=== PATIENT | male | born 1995 | race Caucasian/White ===

== ENCOUNTER 2023-06-24 22:33 | Emergency (ER) | payer OTHER, SELFPAY ==
[2023-06-24 22:34] VITALS: BP 148/79; PULSE 89; RESP 16; TEMP 36.8; O2SAT 96
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
[2023-06-25] MEDS: Tetracaine HCl/PF 0.5% Oph Sol 4 ML DROPS 3 DROP EYE-RIGHT (00:14)
[2023-06-25] MEDS: Tobramycin Sulfate 0.3% Sol Op 5 ML BTL 2 DROP EYE-RIGHT (00:14)
[2023-06-25] MEDS: Fluorescein Sodium STRIP 1 STRIP EYE-RIGHT (00:14)
[2023-06-25 00:16] VITALS: BP 155/88; PULSE 71; RESP 16; O2SAT 97
== END 2023-06-25 00:19 | disposition home or self-care (01) ==
PROVIDERS: Emergency Provider Internal Medicine
DX: H10.211 Acute toxic conjunctivitis, right eye (principal)
CPT/HCPCS: 99283; 99284

== ENCOUNTER 2024-06-06 21:22 | Emergency (ER) | payer OTHER, SELFPAY ==
--- NOTE | ~2024-06-06 | CT_ITS ---
EXAMINATION: CT HEAD WITHOUT CONTRAST CLINICAL INFORMATION: Dizziness COMPARISON: None. TECHNIQUE: Multidetector volumetric imaging of the head was performed without intravenous contrast material. This CT examination was performed using dose optimization techniques as appropriate, variously including the following: *Automated exposure control *Adjustment of mA and/or kV according to patient size (this includes techniques or standardized protocols for targeted exams where dose is matched to indication/reason for exam; i.e. extremities or head) *Use of iterative reconstruction technique Dose: 739 mGy-cm FINDINGS: There is no evidence of acute intracranial hemorrhage or territorial infarction. No abnormal mass-effect or midline shift is seen. [place] to white matter differentiation is well preserved. No extra axial fluid collections. The ventricles are normal in size and configuration. There is no abnormal attenuation within the brain parenchyma. The soft tissues and osseous structures are normal. The sinuses and mastoid air cells are clear. CT/CT head/brain wo IV con IMPRESSION: No acute intracranial pathology.
[2024-06-06 21:45] VITALS: BP 142/73; PULSE 81; RESP 16; TEMP 36.4; O2SAT 97; BMI 32.1
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
[2024-06-06 23:35] VITALS: BP 137/66; PULSE 63
[2024-06-06 23:36] VITALS: BP 146/84; PULSE 69
[2024-06-06 23:37] VITALS: BP 133/85; PULSE 84
[2024-06-06 23:59] LABS: Appearance Urine Clear; Color Urine Yellow; Glucose Urine UA Negative (Negative); Leukocyte Esterase Urine Negative (Negative); Nitrite Urine Negative (Negative); Specific Gravity - Urine 1.025 (1.005-1.025); Urine Blood Negative (Negative); Urine Ketones Negative (Negative); Urine Protein Negative (Neg-Trace)
[2024-06-07 00:09] LABS: Amphetamine Screen Urine Not Detected (Not Detect); Barbiturates, Urine Not Detected (Not Detect); Benzodiazepines Screen Urine Not Detected (Not Detect); Buprenorphine Scr Not Detected (Not Detect); Cannabinoid Screen Urine POSITIVE (Not Detect); Cocaine Screen Urine Not Detected (Not Detect); Fentanyl, urine Not Detected (Not Detect); Methadone Screen, Urine Not Detected (Not Detect); Opiate Screen Urine Not Detected (Not Detect); Oxycodone Screen Urine Not Detected (Not Detect); Phencyclidine Screen Urine Not Detected (Not Detect)
[2024-06-07 00:28] VITALS: BP 134/72; PULSE 84; RESP 18; TEMP 36.6; O2SAT 99
== END 2024-06-07 00:31 | disposition home or self-care (01) ==
PROVIDERS: Physician Assistant; Emergency Provider Internal Medicine; PCP Nurse Practitioner Family
DX: R42 Dizziness and giddiness (principal); S06.0X0A Concussion without loss of consciousness, initial encounter; Y04.2XXA Assault by strike against or bumped into by another person, initial encounter; Y93.9 Activity, unspecified; Y92.9 Unspecified place or not applicable; Y99.9 Unspecified external cause status
CPT/HCPCS: 70450; 80307; 81003; 99284

== ENCOUNTER 2024-11-07 21:36 | Emergency (ER) | payer OTHER, SELFPAY ==
--- NOTE | ~2024-11-07 | CT_ITS ---
CLINICAL HISTORY: pain, compression fx? CT lumbar spine without contrast Comparison: None Findings: Minimal convex right mid lumbar curvature. Bony alignment is anatomic on the sagittal reconstructions. No acute fracture. No retroperitoneal mass lesions are seen within the field of view. Minimal posterior annular region seen at the L3-4 disc level. Broad-based disc bulge with superimposed right lateral disc protrusion at L4-5. Disc protrusion extends into the right neural foramen. Mild displacement of the exiting right L4 nerve rootlet. Posterior osteophytic ridging broad-based disc bulge of the L5-S1 disc level without central canal and neural foraminal narrowing. IMPRESSION: No acute fracture. Degenerative change from L3-4 through L5-S1. This includes a broad-based disc bulge and superimposed right lateral disc protrusion at L4-5 with mild displacement of the exiting right L4 nerve rootlets. Correlation with a right L4 radiculopathy suggested. This document has been electronically signed by: Severo Vaughan MD on 11/08/2024 03:18:36
[2024-11-07 21:53] VITALS: BP 135/71; PULSE 86; RESP 14; TEMP 36.9; O2SAT 99; BMI 35.5
--- NOTE | 2024-11-08 00:07 | ED.BACK ---
HPI - Back Pain/Injury General Chief Complaint: Back Pain/Injury Stated Complaint: back pain Time Seen by Provider: 11/07/24 23:39 Source: patient Limitations: no limitations History of Present Illness ED Provider: Nicky Wesley PA-C HPI Narrative: 29-year-old male presents with acute onset low back pain. Patient was at the gym he was lifting 400 lb when he developed acute onset low back pain. Denies fall. Denies radiation of pain down either extremity, paresthesia, weakness, urinary retention or bowel incontinence. Related Data Previous Rx's ?Medication ?Instructions ?Recorded meclizine 25 mg tablet 25 mg PO DAILY PRN dizziness #14 06/07/24 tabs meloxicam 15 mg tablet 15 mg PO DAILY #7 tabs 11/08/24 methocarbamol 750 mg tablet 1,500 mg (2 x 750 mg) PO TID PRN 11/08/24 pain, moderate #24 tabs Allergies Allergy/AdvReac Type Severity Reaction Status Date / Time bupropion [From Wellbutrin] Allergy Hives Verified 11/07/24 21:55 Review of Systems Review of Systems: Yes all other systems are reviewed and are negative Constitutional: Constitutional: Denies fatigue and Denies fever(s) Cardiovascular: Cardiovascular: Denies chest pain and Denies dyspnea Respiratory: Respiratory: Denies dyspnea Musculoskeletal: Musculoskeletal: Reports back pain, Denies muscle weakness, Denies numbness, Denies radiating pain into limb and Denies tingling Neurologic: Denies numbness and Denies tingling Endocrine: Endocrine: Denies fatigue PMFSH Past Medical History Attestation statement: The following information was validated with the patient. Social History Social History Alcohol intake: never Smoked in Last 30 Days: No Use of substances other than those prescribed or required for medical reasons: No Advance Directives: No Advance Directives Information Provided: Yes Do you have a plan to hurt others: No Plan Physical Exam Vital Signs: Vital Signs: Last Vital Signs Temp 98.5 F 11/08/24 00:25 Pulse 94 11/08/24 00:25 Resp 18 11/08/24 00:25 BP 146/89 H 11/08/24 00:25 Pulse Ox 97 11/08/24 00:25 O2 Del Method Room Air 11/08/24 00:25 BMI result Body Mass Index 35.5 Const: Other: Alert, appears very uncomfortable, pacing in the room unable to sit for any length of time or lie down Orientation/consciousness: patient oriented x3 Resp: Effort & Inspection: normal respiratory effort Cardio: Other: Normal peripheral perfusion Back/Spine/Pelvis: Other: No midline tenderness to the length of the spine Skin: Other: Warm dry no rash Neuro: Other: Antalgic gait General: patient oriented x3, no focal motor deficits and CN's II-XI intact bilaterally Psych: Other: Calm cooperative Medications Administered Discontinued Medications Generic Name Dose Route Start Last Admin Trade Name Freq PRN Reason Stop Dose Admin Ibuprofen 800 mg 11/08/24 01:29 11/08/24 01:45 Ibuprofen 800 Mg Tablet PO 11/08/24 01:30 800 mg ONCE ONE Administration Medical Decision Making Medical Decision Making [facility] Narrative: 29-year-old male presents with acute onset low back pain. Patient was at the gym he was lifting 400 lb when he developed acute onset low back pain. Denies fall. Denies radiation of pain down either extremity, paresthesia, weakness, urinary retention or bowel incontinence. No chronic issues History: Per patient I have considered the following differential diagnoses: Compression fracture, lumbar strain, lumbar radiculopathy, cauda equina, disc herniation Plan: Patient here with a obvious lumbar strain, given the amount of weight he was lifting, I am obtaining imaging to rule out compression fracture. He has no radicular symptoms and no red flag signs symptoms concerning for cauda equina. He is deferring medication at this time as he is driving. He will accept medications sent to his pharmacy. I have independently reviewed the following tests: CT lumbar spine:Findings: Minimal convex right mid lumbar curvature. Bony alignment is anatomic on the sagittal reconstructions. No acute fracture. No retroperitoneal mass lesions are seen within the field of view. Minimal posterior annular region seen at the L3-4 disc level. Broad-based disc bulge with superimposed right lateral disc protrusion at L4-5. Disc protrusion extends into the right neural foramen. Mild displacement of the exiting right L4 nerve rootlet. Posterior osteophytic ridging broad-based disc bulge of the L5-S1 disc level without central canal and neural foraminal narrowing. IMPRESSION: No acute fracture. Degenerative change from L3-4 through L5-S1. This includes a broad-based disc bulge and superimposed right lateral disc protrusion at L4-5 with mild displacement of the exiting right L4 nerve rootlets. Correlation with a right L4 radiculopathy suggested. This document has been electronically signed by: Severo Vaughan MD on 11/08/2024 03:18:36 Discharge Plan Discharge Clinical Impression: Strain of lumbar region, Herniated intervertebral disc of lumbar spine Patient Disposition: Home, Self-Care Instructions: Low Back Strain (ED) Additional Instructions: The CT scan of your lumbar spine revealed that you have a bulging disc at L4-L5. You also have arthritic changes at L3-L4 through L5-S1. You have also sustained musculoskeletal strain of the lumbar region. See home care instructions. Use the anti-inflammatory, meloxicam, as directed. Use the methocarbamol, this is a muscle relaxant, as needed for further discomfort. To note this medication will cause drowsiness do not drive or operate machinery while taking the medication. Follow up with your primary care provider, you will require physical therapy as an outpatient. You will likely require advanced imaging as an outpatient as well in the way of an MRI. Call tomorrow to set up a follow up appointment to discuss the next steps in regard to your disc herniation. Prescriptions: New meloxicam 15 mg tablet 15 mg PO DAILY Qty: 7 0RF methocarbamol 750 mg tablet 1,500 mg PO TID PRN (Reason: pain, moderate) Qty: 24 0RF No Action meclizine 25 mg tablet 25 mg PO DAILY PRN (Reason: dizziness) Qty: 14 0RF Print Language: Uzbek
[2024-11-08 00:25] VITALS: BP 146/89; PULSE 94; RESP 18; TEMP 36.9; O2SAT 97
[2024-11-08] MEDS: Ibuprofen 800 MG TABLET PO (01:45)
[2024-11-08 03:47] VITALS: BP 142/82; PULSE 84; RESP 16; TEMP 36.9; O2SAT 99
[2024-11-08 03:49] VITALS: BP 142/82; PULSE 84; RESP 16; TEMP 36.9; O2SAT 99
== END 2024-11-08 03:56 | disposition home or self-care (01) ==
PROVIDERS: Emergency Provider Emergency Medicine; PCP Nurse Practitioner Family
DX: S39.012A Strain of muscle, fascia and tendon of lower back, initial encounter (principal); X50.0XXA Overexertion from strenuous movement or load, initial encounter; M51.26 Other intervertebral disc displacement, lumbar region; Y93.B3 Activity, free weights; Y92.59 Other trade areas as the place of occurrence of the external cause; Y99.9 Unspecified external cause status
CPT/HCPCS: 72131; 99283; 99284

== ENCOUNTER → 2024-11-08 01:00 | Outpatient (BNV) | payer OTHER, SELFPAY | PROVIDERS: Emergency Provider Emergency Medicine; PCP Nurse Practitioner Family; Visit Provider Radiology Diagnostic Radiology | DX: M51.26 Other intervertebral disc displacement, lumbar region (principal) | CPT/HCPCS: 72131 ==